=== PATIENT | male | born 1950 | race Caucasian/White ===

== ENCOUNTER 2018-01-12 09:54 | Emergency (ER) | payer OTHER ==
--- NOTE | 2018-01-12 11:57 | ER ---
Nurse's Notes [facility] Name: Luis Alfredo Rivera Jr Age: 67 yrs Sex: Male : 1950 Arrival Date: 01/12/2018 Time: 09:57 Bed 24 Private MD: None, None Diagnosis: Foreign body in left ear Presentation: 01/12 10:08 Presenting complaint: Patient states: Ear piece from hearing aid stuck in left ear aj since last night. Transition of care: patient was not received from another setting of care. Onset of symptoms was January 11, 2018. Note Patient has HTN and is aware of recent elevated BP. Patient has appointment with PCP for evaluation of current HTN medications. No complaints of pain or dizziness at this time. Care prior to arrival: None. 10:08 Method Of Arrival: Ambulatory aj 10:08 Acuity: PRITESH 5 aj 11:30 Risk Assessment: Do you want to hurt yourself or someone else? Patient reports no aa5 desire to harm self or others. Initial Sepsis Screen: Does the patient meet any 2 criteria? No. Patient's initial sepsis screen is negative. Does the patient have a suspected source of infection? No. Patient's initial sepsis screen is negative. Triage Assessment: 10:10 General: Appears in no apparent distress. comfortable, Behavior is calm, cooperative, aj appropriate for age. Pain: Denies pain. EENT: Reports FB in left ear. Neuro: Level of Consciousness is awake, alert, obeys commands, Oriented to person, place, time, situation, Appropriate for age. Respiratory: Airway is patent Respiratory effort is even, unlabored, Respiratory pattern is regular, symmetrical. Derm: Skin is intact, is healthy with good turgor, Skin is pink, warm \T\ dry. normal. Historical: - Allergies: 10:10 No Known Allergies; aj - Home Meds: 10:10 lisinopril 20 mg Oral tab 1 tab once daily [Active]; multivitamin Oral tab daily aj [Active]; - PMHx: 10:10 Hypertension; aj - PSHx: 10:10 Hernia repair; aj - Immunization history:: Last tetanus immunization: unknown. - Social history:: Smoking status: Patient/guardian denies using tobacco. - Ebola Screening: : No symptoms or risks identified at this time. Screenin:30 Abuse screen: Denies threats or abuse. Nutritional screening: No deficits noted. aa5 Tuberculosis screening: No symptoms or risk factors identified. Fall Risk None identified. Assessment: 11:30 General: Appears comfortable, Behavior is calm, cooperative. Pain: Denies pain. Neuro: aa5 Level of Consciousness is awake, alert, obeys commands, Oriented to person, place, time, situation. Cardiovascular: No deficits noted. Respiratory: Airway is patent Respiratory effort is even, unlabored, Respiratory pattern is regular, symmetrical. GI: No signs and/or symptoms were reported involving the gastrointestinal system. : No signs and/or symptoms were reported regarding the genitourinary system. EENT: Reports FB to left ear . Derm: No signs and/or symptoms reported regarding the dermatologic system. Musculoskeletal: Range of motion: intact in all extremities. 12:00 Reassessment: Patient is alert, oriented x 3, equal unlabored respirations, skin aa5 warm/dry/pink. Vital Signs: 10:10 BP 185 / 95; Pulse 70; Resp 19; Temp 97.9; Pulse Ox 96% on R/A; Weight 83.01 kg; Height aj 5 ft. 9 in. (175.26 cm); 12:00 BP 161 / 100; Pulse 72; Resp 18 S; Pulse Ox 98% on R/A; aa5 10:10 Body Mass Index 27.02 (83.01 kg, 175.26 cm) aj 12:00 PA notified of BP, PA states it's ok to d/c pt home now. aa5 ED Course: 09:57 Patient arrived in ED. mr 09:58 Alirio Augustine MD is Private Physician. mr 09:58 None, None is Private Physician. mr 10:09 Triage completed. aj 10:10 Arm band placed on left wrist. Patient placed in waiting room. aj 11:30 Patient has correct armband on for positive identification. aa5 11:38 Gregory Lewis PA is PHCP. cp 11:38 Jer Beavers MD is Attending Physician. cp 11:40 Assist provider with foreign body removal of plastic ear piece from left ear canal. aa5 using alligator clamps, Set up for procedure. Performed by Gregory LIPSCOMB Patient tolerated well. 11:49 Ching Rodriguez, SHONA is Primary Nurse. aa5 12:00 Patient did not have IV access during this emergency room visit. aa5 Administered Medications: No medications were administered Outcome: 11:56 Discharge ordered by . briana 12:05 Discharged to home ambulatory. tamara 12:05 Condition: good 12:05 Discharge instructions given to patient, Instructed on discharge instructions, follow up and referral plans. Demonstrated understanding of instructions, follow-up care. 12:09 Patient left the ED. dm5 Signatures: Bita Louis RN RN dm5 Myers, Amanda, RN RN aj Rivera, Maria mr Calderon, Audri, RN RN deepali5 Gregory Lewis, DEISI PA cp
--- NOTE | 2018-01-12 11:57 | EDPHYS ---
Physician Documentation [facility] Name: Luis Alfredo Rivera Jr Age: 67 yrs Sex: Male : 1950 Arrival Date: 01/12/2018 Time: 09:57 Bed 24 Private MD: None, None ED Physician Jer Beavers HPI: 01/12 11:50 This 67 yrs old Male presents to ER via Ambulatory with complaints of Foreign cp Body In Ear. 11:50 The patient presents with a foreign body sensation, plastic piece of hearing aid. The cp complaints affect the left ear. Onset: The symptoms/episode began/occurred last night. Associated signs and symptoms: Pertinent negatives: fever, sore throat, pain. Severity of symptoms: in the emergency department the symptoms are unchanged despite home interventions. Historical: - Allergies: 10:10 No Known Allergies; aj - Home Meds: 10:10 lisinopril 20 mg Oral tab 1 tab once daily [Active]; multivitamin Oral tab daily aj [Active]; - PMHx: 10:10 Hypertension; aj - PSHx: 10:10 Hernia repair; aj - Immunization history:: Last tetanus immunization: unknown. - Social history:: Smoking status: Patient/guardian denies using tobacco. - Ebola Screening: : No symptoms or risks identified at this time. ROS: 11:51 Eyes: Negative for injury, pain, redness, and discharge. cp 11:51 Constitutional: Negative for body aches, chills, fever, poor PO intake. 11:51 ENT: Positive for foreign body sensation, Negative for drainage from ear(s), sore throat, difficulty swallowing, difficulty handling secretions. 11:51 Cardiovascular: Negative for chest pain, palpitations. 11:51 Respiratory: Negative for cough, shortness of breath, wheezing. 11:51 Skin: Negative for cellulitis, rash. 11:51 Neuro: Negative for headache. 11:51 All other systems are negative. Exam: 11:52 Head/Face: Normocephalic, atraumatic. cp 11:52 Constitutional: The patient appears in no acute distress, alert, awake, non-toxic, well developed, well nourished. 11:52 Eyes: Periorbital structures: appear normal, Conjunctiva: normal, no exudate, no injection, Lids and lashes: appear normal, bilaterally. 11:52 ENT: External ear(s): are unremarkable, Ear canal(s): foreign body, plastic piece from hearing aid, in the left external ear canal, TM's: dullness, bilaterally, Nose: is normal, Mouth: is normal, Posterior pharynx: is normal, airway is patent. 11:52 Neck: ROM/movement: is normal, is supple, without pain, no range of motions limitations, no nuchal rigidity. 11:52 Cardiovascular: Rate: normal, Rhythm: regular. 11:52 Respiratory: the patient does not display signs of respiratory distress, Respirations: normal, no use of accessory muscles, no retractions, no splinting, no tachypnea. 11:52 Abdomen/GI: Exam negative for discomfort, distension, guarding, Inspection: abdomen appears normal. 11:52 Skin: cellulitis, is not appreciated, no rash present. Vital Signs: 10:10 BP 185 / 95; Pulse 70; Resp 19; Temp 97.9; Pulse Ox 96% on R/A; Weight 83.01 kg; Height aj 5 ft. 9 in. (175.26 cm); 12:00 BP 161 / 100; Pulse 72; Resp 18 S; Pulse Ox 98% on R/A; aa5 10:10 Body Mass Index 27.02 (83.01 kg, 175.26 cm) aj 12:00 PA notified of BP, PA states it's ok to d/c pt home now. aa5 Procedures: 11:55 Foreign Body Removal: piece of plastic, from the left ear canal, by using alligator cp clamps, The patient tolerated the removal well. MDM: 11:38 Patient medically screened. cp 11:50 Differential diagnosis: otitis media, otitis externa, ruptured TM, foreign body, cp cerumen impaction. 11:56 Data reviewed: vital signs, nurses notes, and as a result, I will discharge patient. cp 01/12 11:50 Order name: Vital Signs: blood pressure recheck; Complete Time: 15:27 cp Administered Medications: No medications were administered Disposition: 13:08 Co-signature as Attending Physician, Jer Beavers MD I agree with the assessment and kdr plan of care. Disposition: 01/12/18 11:56 Discharged to Home. Impression: Foreign body in left ear. - Condition is Stable. - Discharge Instructions: Ear Foreign Body, How to Take Your Blood Pressure, [id number], Managing Your High Blood Pressure. - Medication Reconciliation Form, Thank You Letter, Antibiotic Education, Prescription Opioid Use form. - Follow up: Private Physician; When: 2 - 3 days; Reason: blood pressure check. - Problem is new. - Symptoms are resolved. Signatures: Bita Louis RN RN dm5 Bindu Boggs RN RN aj Rittger, Kevin, MD MD kdr Calderon, Audri RN RN aa5 Gregory Lewis PA PA cp Corrections: (The following items were deleted from the chart) 12:09 11:56 01/12/2018 11:56 Discharged to Home. Impression: Foreign body in left ear. dm5 Condition is Stable. Forms are Medication Reconciliation Form, Thank You Letter, Antibiotic Education, Prescription Opioid Use. Follow up: Private Physician; When: 2 - 3 days; Reason: blood pressure check. Problem is new. Symptoms are resolved. cp
== END 2018-01-12 12:09 | disposition home or self-care (01) ==
LOC: ER 09:54
PROC: 09C1XZZ Extirpation of Matter from Left External Ear, External Approach (ICD-10-PCS; principal; 2018-01-12)
DX: T16.2XXA Foreign body in left ear, initial encounter (principal)
CPT/HCPCS: 99283

== ENCOUNTER 2019-01-04 10:23 | Observation (INO) | payer OTHER ==
--- OUTSIDE RECORDS SUMMARY | 2019-01-04 10:25 | XMS REPORT ---
:1950 [facility] Address [address] [place] [address] Dr. Méndez [address] [place] [id number] Care Team Providers Name Role Phone Unavailable Unavailable Unavailable Problems This patient has no known problems. Allergies, Adverse Reactions, Alerts This patient has no known allergies or adverse reactions. Medications This patient has no known medications.
--- OUTSIDE RECORDS SUMMARY | 2019-01-04 10:25 | XMS REPORT | Summary of Care ---
:1950 Author Name JODI MURRAY M.D. Address [facility] Unavailable , Care Team Providers Name Role Phone JODI MURRAY M.D. 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 Start : 15-Sep-2018 Active 21 Tablet Pack Aspirin 81 MG TABS Refills: 0 Active Trileptal TABS Refills: 0 Active Finasteride TABS Refills: 0 Active hydroCHLOROthiazide TABS Refills: 0 Active Lisinopril TABS Refills: 0 Active Omeprazole-Sodium Bicarbonate CAPS Refills: 0 Active amLODIPine Besylate TABS Refills: 0 Active Carvedilol TABS Refills: 0 Active Allergies and Adverse Reactions Name Dates Details No Known Drug Allergies (Allergy) Status: Active Past Medical History Name Dates Details History of back pain (V13.59, Z87.39) Status: Resolved History of gout (V12.29, Z87.39) Status: Resolved History of Hernia (553.9, K46.9) Status: Resolved History of hypertension (V12.59, Z86.79) Status: Resolved Procedures Procedure Dates Details History of Hernia repair Completed Immunization Name Dates Details Immunizations not documented Family History Name Dates Details Family history of hypertension (V17.49, Z82.49) Comments: Family History Status: Active Family history of malignant neoplasm (V16.9, Z80.9) Comments: Family History Status: Active Family history of Heart trouble (429.9, I51.9) Comments: Family History Status: Active Social History Name Dates Details Unknown if ever smoked Vital Signs Date Test Result Details No Known Vitals to report Results Date Description Value Details Results not documented Plan of Care Name Dates Details Planned Observations Planned Goals not documented Planned Encounters Appointment; JODI MURRAY M.D. On: 13-Dec-2018 10:00 Interventions Provided PlanPatient Education/Instructions: Patient Education Provided Reassurance Patient/Parent to call or return with any abnormal changes Orders: Physical Therapy Medications: Medications (prescribed or recommended at this visit): Medication was prescribed or recommended. Dosage, administration, and common potential side effects were reviewed. Please confirm and review medication information and directions with the pharmacist. - Instructions were given to take anti-inflammatory medication with food and only as directed by a physician. DO NOT take more than prescribed as this can cause serious side effects including kidney damage in higher doses. - Skelaxin 800mg. Take 1 every 8 hours as needed for spasm. Skelaxin (metaxalone) is a muscle relaxant medication. Use only as directed. DO NOT drive or operate machinery while using this medication. Instructions were given to apply topical anti-inflammatory medication only as directed by a physician. Do not take oral NSAIDs while using this medication. - Take 500mg - 1000mg of acetaminophen (Tylenol) every 4-6 hours as needed for relief of pain, discomfort, or fever. Do NOT take more than 4000mg in a 24 hour period (can cause liver damage in higherdoses). Follow Up: Return to the clinic in 6 weeks or as needed. Instructions Name Dates Details Instructions not documented Encounters Appointment; JODI MURRAY M.D. On: 15-Sep-2018 14:00 Encounter Diagnosis: Problem not documented Appointment; JODI MURRAY M.D. On: 27-Oct-2018 13:00 Encounter Diagnosis: Problem not documented Appointment; JODI MURRAY M.D. On: 01-Nov-2018 14:45 Encounter Diagnosis: Problem not documented Appointment; JODI MURRAY M.D. On: 08-Nov-2018 15:00 Encounter Diagnosis: Problem not documented
--- NOTE | 2019-01-04 11:24 | RAD REPORT ---
EXAM DESCRIPTION: CT - [id number] - 01/04/2019 11:01 am CLINICAL HISTORY: Trauma, head and neck injury. headache, syncope COMPARISON: No comparisons TECHNIQUE: Axial 5 mm thick images of the head were obtained. Axial 2 mm thick images of the cervical spine were obtained with sagittal and coronal reconstruction images generated and reviewed. All CT scans are performed using dose optimization technique as appropriate and may include automated exposure control or mA/KV adjustment according to patient size. FINDINGS: CT HEAD WITHOUT CONTRAST: No acute hemorrhage, hydrocephalus or extra-axial collection is identified.No areas of brain edema or midline shift. The paranasal sinuses and mastoids are clear.The calvarium is intact. CT CERVICAL SPINE WITHOUT CONTRAST: No fracture or subluxation. Moderate multilevel lower cervical spondylosis. No prevertebral soft tiss ues swelling is identified. IMPRESSION: No acute intracranial or cervical spine findings.
--- NOTE | 2019-01-04 11:39 | RAD REPORT ---
EXAM DESCRIPTION: Eh Single View01/04/2019 11:33 am CLINICAL HISTORY: Chest pain COMPARISON: none FINDINGS: The lungs appear clear of acute infiltrate. The heart is normal size IMPRESSION: No acute abnormalities displayed
[2019-01-04 11:49] LABS: Protime INR 1.04
[2019-01-04] MEDS ORDERED: ASPIRIN 81 MG CHEWABLE TABLET ONE (11:49)
[2019-01-04 11:51] LABS: Absolute Lymphocytes (CBC) 1.7 K/uL (0.7-4.9); Absolute Monocytes 0.5 K/uL (0.1-1.3); Absolute Neutrophil 4.1 K/uL (1.8-8.0); Hematocrit 39.4 % (39.6-49.0); Lymphocytes % 25.7 % (15.3-44.8); MPV 9.2 fL (7.6-11.3); Monocytes % 7.4 % (3.3-12.3); RBC Red Blood Cell Count 4.45 M/uL (4.33-5.43)
[2019-01-04 12:13] LABS: ALT/SGPT 26 U/L (12-78); AST/SGOT 14 U/L (15-37); Albumin 3.7 g/dL (3.4-5.0); Alkaline Phosphatase 68 U/L (45-117); BUN Blood Urea Nitrogen 28 mg/dL (7-18); Bicarbonate 27 mmol/L (21-32); Bilirubin Direct 0.1 mg/dL (0-0.2); Bilirubin Total 0.4 mg/dL (0.2-1.0); Glucose Level 104 mg/dL (74-106); NT PRO-BNP 307 pg/mL (<125); Potassium 4.4 mmol/L (3.5-5.1); Sodium Level 139 mmol/L (136-145); Troponin (Emerg Dept Use Only) < 0.02 ng/mL (0.0-0.045)
--- NOTE | 2019-01-04 12:45 | EKG ---
Test Date: 2019-01-04 Test Time: 10:33:30 Management Tech: KYLEE MEASUREMENT RESULTS: Intervals: Rate: 62 ND: 186 QRSD: 96 QT: 416 QTc: 422 Phillips: P: 47 ND: 186 QRS: 36 T: 48 INTERPRETIVE STATEMENTS: Sinus rhythm with occasional premature ventricular complexes Otherwise normal ECG No previous ECG available for comparison Electronically Signed On 01-04-19 12:43:58 CDT by Quincy Mcmanus
[2019-01-04 12:49] LABS: Urine Bacteria <20 /HPF (NONE SEEN); Urine Culture Reflex Order NOT NEEDED; Urine RBC <5 /HPF (NONE SEEN)
[2019-01-04] MEDS ORDERED: NA CHLORIDE 0.9% 500 ML ONE (13:02)
--- NOTE | 2019-01-04 13:19 | EDPHYS ---
Physician Documentation [facility] Name: Luis Alfredo Rivera Jr Age: 68 yrs Sex: Male : 1950 Arrival Date: 01/04/2019 Time: 10:24 Bed 17 Private MD: ED Physician Cornelio Chavez HPI: 01/04 10:45 This 68 yrs old Male presents to ER via Unassigned with complaints of cp Dizziness, Passed Out Prior To Arrival. 10:45 The patient has experienced syncope, collapsed, lost consciousness. cp 10:45 Onset: The symptoms/episode began/occurred this morning. Duration: This was a single cp episode. Associated injury: Head/face: left frontal area, pain. Associated signs and symptoms: Pertinent positives: dizziness, headache. Current symptoms: headache, that is mild, general weakness. Historical: - Allergies: 10:53 No Known Allergies; iw - Home Meds: 10:53 lisinopril Oral twice a day [Active]; amlodipine 2.5 mg tab 1 tab once daily [Active]; iw finasteride 1 mg oral tab 1 tab once daily [Active]; carvedilol 3.125 mg oral tab 1 tab 2 times per day [Active]; oxcarbazepine oral oral once daily [Active]; multivitamin Oral tab daily [Active]; - PMHx: 10:53 Hypertension; Cataracts; iw - PSHx: 10:53 Hernia repair; iw - Immunization history:: Adult Immunizations not up to date. - Social history:: Smoking status: Patient/guardian denies using tobacco. - Ebola Screening: : Patient negative for fever greater than or equal to 101.5 degrees Fahrenheit, and additional compatible Ebola Virus Disease symptoms Patient denies exposure to infectious person Patient denies travel to an Ebola-affected area in the 21 days before illness onset No symptoms or risks identified at this time. ROS: 10:52 Eyes: Negative for injury, pain, redness, and discharge. cp 10:52 Constitutional: Negative for body aches, chills, fever, poor PO intake. 10:52 Cardiovascular: Positive for chest pain, Negative for edema, palpitations. 10:52 Respiratory: Negative for cough, shortness of breath, wheezing. 10:52 Abdomen/GI: Negative for abdominal pain, nausea, vomiting, and diarrhea. 10:52 : Negative for urinary symptoms. 10:52 Skin: Negative for cellulitis, rash. 10:52 Neuro: Positive for dizziness, headache, syncope, Negative for altered mental status. 10:52 All other systems are negative. Exam: 10:45 ECG was reviewed by the Attending Physician. cp 10:55 Constitutional: The patient appears in no acute distress, alert, awake, cp non-diaphoretic, non-toxic, well developed, well nourished. 10:55 Head/Face: Normocephalic, atraumatic. Eyes: Pupils equal round and reactive to light, cp extra-ocular motions intact. Lids and lashes normal. Conjunctiva and sclera are non-icteric and not injected. Cornea within normal limits. Periorbital areas with no swelling, redness, or edema. ENT: Nares patent. No nasal discharge, no septal abnormalities noted. Tympanic membranes are normal and external auditory canals are clear. Oropharynx with no redness, swelling, or masses, exudates, or evidence of obstruction, uvula midline. Mucous membranes moist. Chest/axilla: Normal chest wall appearance and motion. Nontender with no deformity. No lesions are appreciated. Cardiovascular: Regular rate and rhythm with a normal S1 and S2. No gallops, murmurs, or rubs. Normal PMI, no JVD. No pulse deficits. Respiratory: Lungs have equal breath sounds bilaterally, clear to auscultation and percussion. No rales, rhonchi or wheezes noted. No increased work of breathing, no retractions or nasal flaring. Abdomen/GI: Soft, non-tender, with normal bowel sounds. No distension or tympany. No guarding or rebound. No evidence of tenderness throughout. 10:55 Back: pain, is absent, ROM is normal. 10:55 Musculoskeletal/extremity: Exam is negative for calf tenderness, decreased range of motion, edema, injury. 10:55 Skin: no rash present. 10:55 Neuro: Orientation: to person, place \T\ time. Mentation: is normal, Cerebellar function: is grossly normal, Motor: moves all fours, strength is normal, Sensation: is normal. Vital Signs: 10:53 BP 152 / 90; Pulse 66; Resp 16; Temp 97.8(TE); Pulse Ox 98% on R/A; Weight 77.11 kg; iw Height 5 ft. 9 in. (175.26 cm); Pain 0/10; 11:12 BP 142 / 84 Supine; Pulse 68; Resp 16; Pulse Ox 100% on R/A; dh3 11:14 BP 142 / 81 Sitting; Pulse 71; Resp 17; Pulse Ox 100% on R/A; dh3 11:16 BP 132 / 83 Standing; Pulse 66; Resp 15; Pulse Ox 100% on R/A; dh3 12:19 BP 136 / 83; Pulse 59; Resp 15; Pulse Ox 98% ; bp 12:57 BP 143 / 80; Pulse 62; Resp 19; Pulse Ox 98% ; bp 13:37 BP 152 / 89; Pulse 66; Resp 16; Pulse Ox 99% ; bp 14:43 BP 154 / 89; Pulse 59; Resp 14; Pulse Ox 100% ; bp 15:30 BP 152 / 83; Pulse 62; Resp 17; Pulse Ox 100% ; bp 10:53 Body Mass Index 25.10 (77.11 kg, 175.26 cm) iw MDM: 10:33 Patient medically screened. cp 11:00 Differential Diagnosis: cardiac arrhythmia, cerebrovascular accident, GI bleed, cp idiopathic syncope, seizure, transient ischemic attack, vasovagal episode. 12:45 Data reviewed: vital signs, nurses notes, lab test result(s), EKG, radiologic studies, cp CT scan, plain films. 12:45 Test interpretation: by ED physician or midlevel provider: ECG, plain radiologic cp studies. 13:10 Physician consultation: Rosaura Tim MD was called at 13:10, was contacted at 13:10, regarding admission, to the telemetry unit. patient's condition. 13:10 Response to treatment: the patient's symptoms have mildly improved after treatment. cp 01/04 10:45 Order name: Basic Metabolic Panel cp 01/04 10:45 Order name: CBC with Diff cp 01/04 10:45 Order name: LFT's; Complete Time: 12:38 cp 01/04 10:45 Order name: Magnesium; Complete Time: 12:38 cp 01/04 10:45 Order name: NT PRO-BNP; Complete Time: 12:38 cp 01/04 10:45 Order name: PT-INR; Complete Time: 12:03 cp 01/04 10:45 Order name: Troponin (emerg Dept Use Only); Complete Time: 12:38 cp 01/04 10:45 Order name: XRAY Chest (1 view); Complete Time: 12:03 cp 01/04 10:45 Order name: CT Head C Spine; Complete Time: 11:31 cp 01/04 11:32 Interpretation: Reviewed report. 01/04 10:45 Order name: Urine Microscopic Only cp 01/04 10:46 Order name: Basic Metabolic Panel; Complete Time: 12:38 EDMS 01/04 12:38 Interpretation: Normal except: BUN 28; CRE 1.62; GFR 43. cp 01/04 10:46 Order name: CBC with Automated Diff; Complete Time: 12:03 EDMS 01/04 12:03 Interpretation: Normal except: HGB 13.2; HCT 39.4. 01/04 12:00 Order name: Urine Dipstick--Ancillary (enter results) eb 01/04 10:45 Order name: EKG; Complete Time: 10:46 cp 01/04 10:45 Order name: Cardiac monitoring; Complete Time: 10:57 cp 01/04 10:45 Order name: EKG - Nurse/Tech; Complete Time: 10:57 cp 01/04 10:45 Order name: IV Saline Lock; Complete Time: 11:32 cp 01/04 10:45 Order name: Labs collected and sent; Complete Time: 11:32 cp 01/04 10:45 Order name: O2 Per Protocol; Complete Time: 10:57 cp 01/04 10:45 Order name: O2 Sat Monitoring; Complete Time: 10:57 cp 01/04 10:45 Order name: Orthostatics; Complete Time: 11:32 cp 01/04 10:45 Order name: Urine Dipstick-Ancillary (obtain specimen); Complete Time: 11:39 cp EC:45 Rate is 62 beats/min. Rhythm is regular. IA interval is normal. QRS interval is normal. cp QT interval is normal. Administered Medications: 11:39 Drug: Aspirin Chewable Tablet 324 mg Route: PO; bp 12:21 Follow up: Response: No adverse reaction bp 12:45 Drug: NS 0.9% 500 ml Route: IV; Rate: bolus; Site: right forearm; bp 14:00 Follow up: IV Status: Completed infusion; IV Intake: 500ml bp Disposition: 16:46 Co-signature as Attending Physician, Cornelio Chavez MD. gs Disposition: 01/04/19 13:18 Hospitalization ordered by Rosaura Tim for Observation. Preliminary diagnosis is Syncope and collapse. - Bed requested for Telemetry/MedSurg (observation). - Status is Observation. bp - Condition is Stable. - Problem is new. - Symptoms have improved. UTI on Admission? No Signatures: Dispatcher [employer] EDMS Patty Cancino, RN RN iw Gregory Lewis, Cornelio Haywood cp, MD MD Alexis Parsons RN RN Lorena Vela Corrections: (The following items were deleted from the chart) 14:59 13:18 Hospitalization Ordered by Rosaura Tim MD for Observation. Preliminary diagnosis eb is Syncope and collapse. Bed requested for Telemetry/MedSurg (observation). Status is Observation. Condition is Stable. Problem is new. Symptoms have improved. UTI on Admission? No. cp 15:51 14:59 01/04/2019 13:18 Hospitalization Ordered by Rosaura Tim MD for Observation. bp Preliminary diagnosis is Syncope and collapse. Bed requested for Telemetry/MedSurg (observation). Status is Observation. Condition is Stable. Problem is new. Symptoms have improved. UTI on Admission? No. eb
--- NOTE | 2019-01-04 13:19 | ER ---
Nurse's Notes [facility] Name: Luis Alfredo Rivera Jr Age: 68 yrs Sex: Male : 1950 Arrival Date: 01/04/2019 Time: 10:24 Bed 17 Private MD: Diagnosis: Syncope and collapse Presentation: 01/04 10:40 Presenting complaint: Patient states: was standing at the computer, felt dizzy, tried iw to get to couch to sit down, states pt passed out for a few seconds, hit had against wall, states pt was not responding to her and his eyes were open but glassed over, pt has had episodes of dizziness X 4 months and has been falling, has seen paper conservator and neurologist, CT of brain was negative on December 26, paper conservator has been weaning pt off his carvedilol, pt is down to 3.125 mg BID, states pt had a second episode of dizziness on the way to ER and was c/o right sided chest pain. Transition of care: patient was not received from another setting of care. Onset of symptoms was January 04, 2019. Risk Assessment: Do you want to hurt yourself or someone else? Patient reports no desire to harm self or others. Initial Sepsis Screen: Does the patient meet any 2 criteria? No. Patient's initial sepsis screen is negative. Does the patient have a suspected source of infection? No. Patient's initial sepsis screen is negative. Care prior to arrival: None. 10:40 Method Of Arrival: Wheelchair iw 10:40 Acuity: PRITESH 2 iw Triage Assessment: 10:53 General: Appears in no apparent distress. comfortable, slender, Behavior is calm, bp cooperative, appropriate for age. Pain: Denies pain. EENT: No deficits noted. Neuro: Level of Consciousness is awake, alert, obeys commands, Oriented to person, place, time, situation, Appropriate for age Gait is steady, Reports dizziness. Cardiovascular: No deficits noted. Respiratory: Airway is patent Respiratory effort is even, unlabored, Respiratory pattern is regular, symmetrical. GI: No signs and/or symptoms were reported involving the gastrointestinal system. : No signs and/or symptoms were reported regarding the genitourinary system. Derm: No deficits noted. Musculoskeletal: Circulation, motion, and sensation intact. Range of motion: intact in all extremities. Historical: - Allergies: 10:53 No Known Allergies; iw - Home Meds: 10:53 lisinopril Oral twice a day [Active]; amlodipine 2.5 mg tab 1 tab once daily [Active]; iw finasteride 1 mg oral tab 1 tab once daily [Active]; carvedilol 3.125 mg oral tab 1 tab 2 times per day [Active]; oxcarbazepine oral oral once daily [Active]; multivitamin Oral tab daily [Active]; - PMHx: 10:53 Hypertension; Cataracts; iw - PSHx: 10:53 Hernia repair; iw - Immunization history:: Adult Immunizations not up to date. - Social history:: Smoking status: Patient/guardian denies using tobacco. - Ebola Screening: : Patient negative for fever greater than or equal to 101.5 degrees Fahrenheit, and additional compatible Ebola Virus Disease symptoms Patient denies exposure to infectious person Patient denies travel to an Ebola-affected area in the 21 days before illness onset No symptoms or risks identified at this time. Screenin:55 Abuse screen: Denies threats or abuse. Denies injuries from another. Nutritional bp screening: No deficits noted. Tuberculosis screening: No symptoms or risk factors identified. Fall Risk None identified. Assessment: 10:55 General: SEE TRIAGE NOTE. Pain: Denies pain. bp 11:15 Reassessment: PT RETURNED FROM CT. bp 12:21 Reassessment: ALL CURRENT ORDERS COMPLETED, RESULTS PENDING FOR DISPO. bp 12:56 Reassessment: ALL CURRENT ORDERS COMPLETED, IVF INFUSING. NO S/S ACUTE DISTRESS. bp 13:38 Reassessment: ADMIT IN PROCESS, VS STABLE ON MONITOR. bp 14:44 Reassessment: PER GARAGE DOOR HANGER, NO BED AVAILABLE UNTIL NEXT SHIFT. VS STABLE ON bp MONITOR. 15:04 Reassessment: FIRST ATTEMPT TO CALL REPORT, NURSE UNAVAILABLE. bp Vital Signs: 10:53 BP 152 / 90; Pulse 66; Resp 16; Temp 97.8(TE); Pulse Ox 98% on R/A; Weight 77.11 kg; iw Height 5 ft. 9 in. (175.26 cm); Pain 0/10; 11:12 BP 142 / 84 Supine; Pulse 68; Resp 16; Pulse Ox 100% on R/A; dh3 11:14 BP 142 / 81 Sitting; Pulse 71; Resp 17; Pulse Ox 100% on R/A; dh3 11:16 BP 132 / 83 Standing; Pulse 66; Resp 15; Pulse Ox 100% on R/A; dh3 12:19 BP 136 / 83; Pulse 59; Resp 15; Pulse Ox 98% ; bp 12:57 BP 143 / 80; Pulse 62; Resp 19; Pulse Ox 98% ; bp 13:37 BP 152 / 89; Pulse 66; Resp 16; Pulse Ox 99% ; bp 14:43 BP 154 / 89; Pulse 59; Resp 14; Pulse Ox 100% ; bp 15:30 BP 152 / 83; Pulse 62; Resp 17; Pulse Ox 100% ; bp 10:53 Body Mass Index 25.10 (77.11 kg, 175.26 cm) iw ED Course: 10:24 Patient arrived in ED. rg4 10:29 Gregory Lewis PA is PHCP. cp 10:29 Cornelio Chavez MD is Attending Physician. cp 10:31 Alexis Parsons, SHONA is Primary Nurse. bp 10:51 Triage completed. iw 10:51 EKG done, by tissue recovery technician. reviewed by Gregory LIPSCOMB. at1 10:53 Arm band placed on. iw 10:55 Patient has correct armband on for positive identification. Bed in low position. Call bp light in reach. Side rails up X2. Adult w/ patient. 11:01 CT Head C Spine In Process Unspecified. EDMS 11:02 CT completed. Patient tolerated procedure well. Patient moved to CT via wheelchair. jg6 Patient moved to radiology. 11:30 Inserted saline lock: 20 gauge in right antecubital area, using aseptic technique. dh3 Blood collected. 11:33 XRAY Chest (1 view) In Process Unspecified. EDMS 11:35 Initial lab(s) drawn, by md, sent to lab. by venipuncture 23G to left forearm. dh3 13:18 Rosaura Tim MD is Hospitalizing Provider. cp 14:12 CBC with Diff Sent. bp 14:12 Basic Metabolic Panel Sent. bp 15:34 No provider procedures requiring assistance completed. Patient admitted, IV remains in bp place. Administered Medications: 11:39 Drug: Aspirin Chewable Tablet 324 mg Route: PO; bp 12:21 Follow up: Response: No adverse reaction bp 12:45 Drug: NS 0.9% 500 ml Route: IV; Rate: bolus; Site: right forearm; bp 14:00 Follow up: IV Status: Completed infusion; IV Intake: 500ml bp Intake: 14:00 IV: 500ml; Total: 500ml. bp Outcome: 13:18 Decision to Hospitalize by Provider. cp 15:33 Admitted to Tele accompanied by tech, family with patient, via wheelchair, room 415, bp with chart, Report called to [facility] 15:33 Condition: stable 15:33 Instructed on the need for admit. 15:51 Patient left the ED. bp Signatures: Dispatcher [employer] EDMS Patty Cancino, RN RN iw Bindu Smith, editor [employer] EKG Tat1 Gregory Lewis PA PA cp Garcia, Rubi 4 Adriana Rondon 3 Alexis Parsons, RN RN Maria M Salgado6 Corrections: (The following items were deleted from the chart) 11:40 11:30 Inserted saline lock: 20 gauge in right forearm, using aseptic technique. [place] [id number]
[2019-01-04 13:49] LABS: Urine Blood NEGATIVE (NEG); Urine Glucose NEGATIVE (NEG); Urine Protein NEGATIVE (NEG); Urine pH 6.5 (5.0-7.0)
[2019-01-04] MEDS ORDERED: ONDANSETRON 4 MG/2 ML VIAL IV PRN (16:07)
[2019-01-04 16:53] VITALS: BMI 25.1
[2019-01-04] MEDS: NA CHLORIDE 0.9% 1,000 ML IV SCH (18:04)
--- NOTE | 2019-01-04 19:41 | RAD REPORT ---
EXAM DESCRIPTION: - CP - 01/04/2019 7:32 pm CLINICAL HISTORY: syncope Headache, syncope COMPARISON: Head C Spine Mpr Wo Con dated 01/04/2019 TECHNIQUE: Real-time sonographic evaluation of both carotid systems was performed. Doppler interroga tion was performed with waveform tracing bilaterally. FINDINGS: Normal high resistance waveforms are noted in both external carotid arteries. The common c arotid arteries and internal carotid arteries show normal low resistance waveforms. Mild to moderate hard plaquing is seen in both carotid bulbs. Peak systolic and end diastolic velocit y values and the ICA/CCA ratios are in the non-hemodynamically significant range. Antegrade flow seen in both vertebral arteries. IMPRESSION: Mild to moderate hard plaque is present in both carotid bulbs. No evidence of a hemodynamically significant stenosis.
[2019-01-04 19:43] LABS: Urine Appearance CLEAR; Urine Bilirubin NEGATIVE (NEG); Urine Blood NEGATIVE (NEG); Urine Color YELLOW; Urine Glucose NEGATIVE (NEG); Urine Microscopic Reflex NO UMIC; Urine Protein NEGATIVE (NEG); Urine Specific Gravity 1.015 (1.005-1.030); Urine pH 6.5 (5.0-7.0)
[2019-01-04] MEDS: ACETAMINOPHEN 500 MG TAB PO PRN (20:28)
[2019-01-04] MEDS ORDERED: PNEUMOCOCCAL VACCINE 0.5 ML IMVAC ONE (21:00)
[2019-01-05] MEDS: NA CHLORIDE 0.9% 1,000 ML IV SCH (02:16)
--- NOTE | 2019-01-05 03:33 | HP ---
Date of Admission: 01/04/2019 Chief Complaint: Syncopal episode. Primary Care Physician: At [facility]. Neurologist: Dr. Mckeon. History Of Present Illness: The patient is a 68-year-old male with past medical history of hypertens ion, BPH, as well as previous partial visual loss on the left eye comes in with acute onset of syncop al episode. The patient has been having dizzy spells over the past 3 months, however, has not had an y syncopal episodes previously. The patient does have hearing loss. He denies any fever, chills, ch est pain, or shortness of breath. The patient was working on his laptop, was in a standing position, he felt dizzy and described it as vertigo sensation, more than lightheadedness, headed towards the c ouch, however, lost consciousness. was in the kitchen, heard the patient and came out and farheen quintero, saw the patient on the ground. The patient was out for less than a minute. The patient did no t have any seizure-type activity. No convulsions. No eye rolling. No urinary incontinence. The ryland morales was then brought into the ER for further evaluation. His symptoms are constant, moderate, prog ressively worsening. In the ER, his workup revealed a creatinine of 1.62 which seems to be around a little bit above his baseline of 1.3. Head CT scan and cervical CT scan did not show any acute hemor rhage or changes. There was no fracture. The patient was then referred for admission. When seen in the ER, he was awake, alert, oriented x3, not in any acute distress. Past Medical History: Hypertension, benign prostatic hyperplasia, leg cramps, left partial visual lo ss, sensorineural hearing loss. Surgical History: Hernia repair, cataract surgery, lens implant. Allergies: NO KNOWN DRUG ALLERGIES. Medications: List reviewed. Social History: The patient is , still working. Denies any tobacco use or alcohol use. Does drink alcohol occasionally, 2 beers a week. No daily alcohol use. No illicit drug use. Family History: Mother had stomach disease and coronary artery disease. Colon cancer runs in the [facility]. Father of heart attack. Sister and uncle also have heart disease. Review of Systems: An 11-point system reviewed, negative except as per HPI. Physical Examination: Vital Signs: Temperature 97.8, heart rate 56, blood pressure 152/90, respirations 16, O2 98% on room air. General: Awake, alert, oriented x3. Elderly male, not ill appearing. HEENT: Normocephalic, atraumatic. PERRLA. EOMI. Moist mucous membranes. Oropharynx is clear. Co njunctivae are anicteric. Neck: Supple. No JVD. Trachea midline. CV: S1, S2. Regular rate and rhythm. Peripheral pulses present. Respiratory: Moving air well bilaterally. No wheezing or stridor. No use of accessory muscles. Gas trointestinal: Abdomen is soft, nontender, nondistended. Positive bowel sounds. No guarding or rig idity. Extremities: No clubbing, cyanosis, or edema. No calf tenderness. Neuro: Cranial nerves 2 through 12 intact grossly. No focal neurological deficit. Speech is normal . Strength is symmetric in bilateral upper and lower extremities. The patient has brisk reflexes. No facial asymmetry. Skin: No rashes. Normal skin turgor. Psych: Mood is okay. Affect is full. Insight and judgment are good. Laboratory Data: UA is negative. Sodium 139, potassium 4.4, chloride 105, CO2 27, BUN 28, creatinin e 1.62, glucose 104, calcium 8.8, magnesium 2. Troponin less than 0.02. BNP 307. INR 1.04. WBC 6. 4, H and H 13.2 and 39.4, platelets 208. Imaging Studies: Head CT scan shows no acute hemorrhage, hydrocephalus, or extra-axial collection id entified. No cervical spine acute findings. No fracture or subluxation. Chest x-ray, no acute abno rmalities, personally reviewed. EKG shows sinus rhythm, rate of 62 with occasional PVCs. No previou s EKG for comparison. Assessment And Plan: A 68-year-old male with: 1.Acute syncopal episode, unclear etiology. Due to his history of previous vascular issues, we will rule out stroke. Obtain MRI of the brain. Stroke protocol. The patient sees Dr. Mckeon as an outpa tient. We will consult him. We will obtain orthostatic vital signs. Carotid artery ultrasound. Pl ayala on fall precautions. 2.Essential hypertension. We will resume home medications as appropriate. 3.Benign prostatic hyperplasia. 4.Partial visual loss on the left eye. 5.Leg cramps. 6.Deep vein thrombosis prophylaxis with Lovenox. 7.Chronic kidney disease stage 3, likely due to uncontrolled blood pressure. We will continue to mo nitor creatinine and avoid NSAIDs. Plan: Admit the patient to Med-Surg, place as observation. /TEMI Voice ID: [id number]
[2019-01-05 05:02] VITALS: O2SAT 96
[2019-01-05 06:03] LABS: Absolute Lymphocytes (CBC) 2.4 K/uL (0.7-4.9); Absolute Monocytes 0.7 K/uL (0.1-1.3); Absolute Neutrophil 4.2 K/uL (1.8-8.0); Basophils % 0.9 % (0-1.3); Eosinophils % 3.9 % (0-4.4); Hematocrit 36.4 % (39.6-49.0); Lymphocytes % 31.4 % (15.3-44.8); MPV 9.1 fL (7.6-11.3); Monocytes % 9.1 % (3.3-12.3); RBC Red Blood Cell Count 4.12 M/uL (4.33-5.43)
[2019-01-05 06:50] LABS: Bilirubin Total 0.4 mg/dL (0.2-1.0); Protein, Total 5.8 g/dL (6.4-8.2); Thyroid Stimulating Hormone 3.23 uIU/mL (0.360-3.740)
--- NOTE | 2019-01-05 08:52 | CON ---
Date of Consultation: 01/04/2019 Reason: Syncope. History: A 68-year-old gentleman who is a clinic patient re-seen for benign cramp-fasciculation synd klever treating now with Trileptal, has been working reasonably well. He still gets cramps and his mus crissy still fasciculates, but not as uncomfortable as it has been in the past. More recently, he has b een having problems with dizziness, and he had an episode today of dizziness that resulted in loss of consciousness, hit his head. He was just standing at the bar, surfing the internet, felt dizzy. He has a little bit of a hard time describing that. Sensation was just sensation of unease and that th ings were not right and did not really have prominent twisting, spinning sensation. He did not have nausea or diplopia nor vertigo, but then he collapsed and lost consciousness. He was confused. His had to arouse him. He went and sat on the couch and was still quite tired and fatigued, came to the hospital. CT scan of the brain unremarkable. C-spine unremarkable. CBC normal. Sodium 139, c reatinine 1.6. Transaminases normal. Carotid Doppler; no stenosis. Chest x-ray clear. EKG, sinus with PVCs. Since being admitted, no further episodes, back to baseline. Consultation was requested. Past Medical History: Hypertension and benign cramp-fasciculation syndrome as alluded to. Medications: Coreg, Norvasc, Cymbalta, omeprazole, hydrochlorothiazide, Trileptal, B12, folic acid. Allergies: NONE. Social History: . Normally independent with activities of daily living. Family History: Negative. Review of Systems: General: Good health. Eyes: Got a prior ocular injury OS with lid lift OS giving some lid asymmetry on inspection. Pupils reactive. Ocular motion full. Chase full. Tympanic membranes clear. Facial strength, sensation normal. Tongue protrudes evenly. Soft palate elevates symmetrically bilaterally. Extremity: Strength full. Intermittent fasciculations noted arms and legs. Sensation intact. Refl exes are slightly brisk 2++. Toes are downgoing. Cerebellar exam demonstrates no ataxia. Gait is n ormal. Pertinent Laboratory Data: As noted in history of present illness. Impression: Syncope. Plan: We will get a Trileptal level which is send out, but maybe helpful in the future. Brain MRI, EEG, MRI stroke protocol, check lipids, sedimentation rate, thyroid. If evaluation is completely unr evealing, I think I would favor perhaps decreasing the Trileptal some upon discharge. Has been contr olling the symptom reasonably well. Recurrence of fasciculations certainly can cause intermittent di zziness. Thank you for the consult. We will continue to follow with you. KARYN Voice ID: [id number] Report ID: [id number]
[2019-01-05] MEDS ORDERED: FOLIC ACID 1 MG TABLET PO SCH (09:54)
[2019-01-05] MEDS ORDERED: FINASTERIDE 5 MG TAB PO SCH (09:54)
[2019-01-05] MEDS ORDERED: DULOXETINE 20 MG CAP PO SCH (09:54)
--- NOTE | 2019-01-05 10:14 | RAD REPORT ---
EXAM DESCRIPTION: MRI - Brain W/Wo Cont - 01/05/2019 9:46 am CLINICAL HISTORY: SYNCOPE Headache, drowsiness, syncope COMPARISON: MRA Head Wo Cont dated 01/05/2019; MRA Neck W/Wo Cont dated 01/05/2019 TECHNIQUE: Multi-sequence, multiplanar MR imaging of the brain was performed with contrast. FINDINGS: No intracranial hemorrhage, hydrocephalus, or extra-axial fluid collection. No edema or sh ift of midline structures. No intracranial mass. DWI is negative for acute CVA. The midline structures are normally formed. Mastoid air cells and paranasal sinuses are clear. Post-contrast images show no abnormal enhancement to suggest tumor or infection. IMPRESSION: No acute or concerning intracranial abnormalities. No pathologic post-contrast enhancement suspected.
[2019-01-05] MEDS ORDERED: PANTOPRAZOLE 40MG TABLET PO SCH (10:15)
--- NOTE | 2019-01-05 10:21 | RAD REPORT ---
EXAM DESCRIPTION: MRI - MRA Head Wo Cont - 01/05/2019 9:46 am CLINICAL HISTORY: syncope CVA COMPARISON: No comparisons FINDINGS: 3D noncontrast [id number] MR angiography of the [place] was performed. No aneurysm, flow-limiting stenosis or vascular malformation is seen. Forward flow seen in codominant vertebral arteries. The visualized dural venous sinuses appear patent. IMPRESSION: No significant flow abnormality of the [place] is identified.
--- NOTE | 2019-01-05 10:25 | RAD REPORT ---
EXAM DESCRIPTION: MRI - MRA Neck W/Wo Cont - 01/05/2019 9:46 am CLINICAL HISTORY: SYNCOPE Headache, syncope COMPARISON: Carotid Artery Bilateral dated 01/04/2019 FINDINGS: Contrast enhance 2D [id number] MR angiography of the neck vessels was performed. A left aortic arch is present with normal branching pattern of the great vessels seen. Both common carotid arteries and subclavian arteries are widely patent. Mild atheromatous narrowing is seen involving both carotid bulbs, estimated left stent 50% based on N ASCET criteria. Findings are slightly greater on the right. Overall, a significant carotid stenosis i s not seen. Antegrade flow seen in both vertebral arteries. IMPRESSION: No significant carotid stenosis is identified.
[2019-01-05] MEDS ORDERED: OXcarbazepine 150 MG TAB PO SCH ×2 (10:30→21:00)
[2019-01-05] MEDS: ACETAMINOPHEN 500 MG TAB PO PRN (12:17)
[2019-01-05 12:48] VITALS: BP 138/70; TEMP 97.5
--- NOTE | 2019-01-06 02:38 | DS ---
Date of Discharge: 01/05/2019 Ground Water Pump Installer: Dr. Mckeon with Neurology. Admitting Diagnoses: 1.Syncope. 2.Essential hypertension. 3.History of leg muscle fasciculations. 4.Partial visual loss in the left eye. 5.Chronic kidney disease, stage 3, likely due to hypertensive nephropathy. Discharge Diagnoses: 1.Syncope, likely related to orthostatic hypotension from blood pressure medications. 2.Essential hypertension. Blood pressure medications adjusted. 3.Benign prostatic hyperplasia, on finasteride. 4.Partial visual loss in the left eye. 5.Lower extremity muscle fasciculation disorder, on Trileptal. 6.Acute on chronic kidney disease, stage 3, improved with IV fluids. 7.Acute dehydration, resolved. Hospital Course: The patient is a 68-year-old male [facility], who comes in with syncopal epi sode. The patient has been having dizzy spells. He takes 4 different medications for his blood pres sure, including PATEL inhibitor, calcium channel yogesh, beta-yogesh, and diuretic. The patient's or thostatic vital signs were positive. He was somewhat dehydrated and creatinine was above his baselin e of 1.3 dating back to 2017. The patient is not aware of this diagnosis. This is likely related to his hypertensive nephropathy. The patient has history of poorly controlled blood pressure. The pat ient was hydrated with IV fluids. CT scan initially did not show any hemorrhage. Cervical CT did no t show any acute findings or fractures. The patient does have some occasional PVCs on his telemetry. Dr. Mckeon, the patient's neurologist, was consulted. Due to his history of previous vascular issue s, MRI of the brain stroke protocol was obtained, was negative for any acute stroke. The patient's b lood pressure medications were held. Orthostatic vital signs were also positive. The patient was co unseled regarding his blood pressure medications. He will be discharged on lisinopril and HCTZ. Bet a-yogesh and calcium channel yogesh will be held to avoid orthostatic hypotension. He will need to keep a close monitoring of his blood pressure monitoring the blood pressure multiple times a day, di fferent times in the day, keep a log and provide it to Dr. Leiva, his developmental education instructor, for further adjus tment and titration of his medications. Regarding his muscular fasciculations, the patient is on a l ow dose of Trileptal 300 b.i.d. Level was sent off. Dr. Mckeon also recommended EEG, which was obtai lydia. He does not feel that this is related to seizure. The patient was then cleared for discharge. He was able to ambulate without difficulty. No further dizziness. His carotid artery ultrasound sh owed bilateral plaque, but no hemodynamically significant stenosis. The patient was then cleared for discharge. He will be sent home in a stable condition. Activity: As tolerated with fall precautions. Diet: Heart healthy. Followup: Follow up with PCP in 2-3 days. Return to ER for worsening condition. Follow up with wesley rologist, Dr. Mckeon, in 2 weeks for EEG results. Follow up with Dr. Leiva, developmental education instructor, as schedule d. Medications: As per medication reconciliation list. Physical Examination: General: Awake, alert, oriented, not in any acute distress, elderly male. CV: S1, S2. No murmurs. Respiratory: Moving air well bilaterally. Abdomen: Soft, nontender, nondistended. Positive bowel sounds. Extremities: No clubbing, cyanosis, or edema. Neuro: Nonfocal. SA/MODL Voice ID: [id number] Report ID: [id number]
[2019-01-06] MEDS ORDERED: LISINOPRIL 20 MG TAB PO SCH (09:00)
--- NOTE | 2019-01-09 10:51 | EEG ---
CHART: [id number] TEST ID#: [id number] DATE OF STUDY: 01-05-2019 THE EEG WAS RECORDED PORTABLE IN THE PATIENTS ROOM ON A 17 CHANNEL MACHINE. ELECTRODES WERE APPLIED IN THE USUAL MANNER USING THE INTERNATIONAL 10-20 SYSTEM. THE WAKING BACKGROUND RHYTHM IN THIS RECORD CONSISTS OF VERY WELL DEVELOPED AND WELL ORGANIZED WAVES OF 10 HZ., MAXIMAL IN THE POSTERIOR HEAD REGIONS WHICH ATTENUATE NORMALLY WITH EYE OPENING. IN DROWSINESS THE BACKGROUND DROPST TO 9 HZ. THERE ARE NO FOCAL OR LATERALIZING FEATURES. NO EPILEPTIFORM ACTIVITY APPEARS. SLEEP OCCURRED NATURALLY. NORMAL SLEEP PATTERNS ARE PRESENT. HYPERVENTILATION WAS NOT PERFORMED. PHOTIC STIMULATION PRODUCED GOOD DRIVING BILATERALLY. IMPRESSION: NORMAL EEG FOR THE AGE OF THE PATIENT IN [place], DROWSINESS AND SLEEP.
== END 2019-01-05 15:25 | disposition home or self-care (01) ==
LOC: ER 10:23 → ERHOLD 13:41 → 4TH 15:36
PROVIDERS: ADMIT Family Medicine; ATTEND Family Medicine
DX: R55 Syncope and collapse (principal); E86.0 Dehydration; I12.9 Hypertensive chronic kidney disease with stage 1 through stage 4 chronic kidney disease, or unspecified chronic kidney disease; N18.3 Chronic kidney disease, stage 3 (moderate); N40.0 Benign prostatic hyperplasia without lower urinary tract symptoms; H54.7 Unspecified visual loss; H90.5 Unspecified sensorineural hearing loss; R25.2 Cramp and spasm; I49.3 Ventricular premature depolarization; I65.23 Occlusion and stenosis of bilateral carotid arteries; Z79.899 Other long term (current) drug therapy
CPT/HCPCS: 96365; 96367; 95816; 93005; 85025 ×2; 80048; 36415; 83735; 85610; 80061; 80076; 85652; 84443; 84484; 82607; 80053; 83880; 84146; 70450; 72125; 71045; 93880; 70553; 70544; 70549; 97163; 94760 ×3; 96360; 99285; A9577; J7030 ×2; G0378 ×3; 81003; 81015